=== PATIENT | female | born 1970 | race Caucasian/White ===

== ENCOUNTER → 2017-01-22 | Outpatient (CLI) | payer OTHER | LOC: FIMAGING 15:44 | PROVIDERS: ATTEND Family Medicine | DX: Z12.31 Encounter for screening mammogram for malignant neoplasm of breast (principal) | CPT/HCPCS: G0202 ==

== ENCOUNTER → 2018-01-23 | Outpatient (CLI) | payer OTHER | LOC: FIMAGING 08:34 | PROVIDERS: ATTEND Family Medicine | DX: Z12.31 Encounter for screening mammogram for malignant neoplasm of breast (principal) ==

== ENCOUNTER 2018-03-27 05:53 | Observation (INO) | payer OTHER ==
--- NOTE | 2018-03-25 13:13 | GHP ---
DATE OF PLANNED PROCEDURE: 03/27/2018. PLANNED PROCEDURE: Total laparoscopic hysterectomy with bilateral salpingectomy for menorrhagia. INDICATIONS: Patient is a 47-year-old, 2, para 0-0-2-0, who I initially consulted in August of 2017 for irregular heavy periods. Patient states the last 2 years she has had cycles in which she has had a 24 hour period of bleeding causing flooding and significant cramps and clots. Her periods slightly tapers after that, but she can bleed for up to 14 days. It had been impacting her ability to work out and live her life. She also became anemic with a hemoglobin of 9.2. Pelvic ultrasound was obtained in December of 2016, which showed the uterus measuring 5.8 x 7.2 x 9.1 cm with 2 fibroids, 1 measuring 2.2 x 2.2 x 2.2 cm, intramural, and a transmural submucosal fibroid measuring 3 x 3.5 x 3.7 cm. Ovaries were unremarkable. The patient had been working extensively with an Eastern medicine doctor who advised against a hysterectomy or ablation as it would make things harder to treat. She had given her progesterone cream. Patient states that she feels okay for 10 days a month, and they are the only days where she is not bleeding or recovering from her period. The patient also has a history of migraines with ocular symptoms, and so was not a good candidate for hormones. The patient has been very resistant to interventions. We discussed all management options including hysteroscopy with morcellation of the fibroid, plus or minus ablation, minipill , and the Mirena IUD. The patient initially elected for minipill, which she did not tolerate. The patient continued to feel miserable and having irregular heavy periods and is still anemic. The patient is now electing to proceed with a total laparoscopic hysterectomy with bilateral salpingectomy. Risks and benefits have been extensively reviewed with the patient including all alternatives, and patient has been properly consented. MEDICAL HISTORY: Fibroid uterus, menorrhagia, genital herpes, migraines with ocular aura, history of anxiety and depression, and anemia secondary to menorrhagia. MEDICATIONS: Ibuprofen as needed and iron. SURGICAL HISTORY: Tonsillectomy. ALLERGIES: Penicillin which causes a rash. She has several dietary allergies. SOCIAL HISTORY: Patient is . She denies tobacco or drug use. She does drink alcohol 2 times a week. FAMILY MEDICAL HISTORY: Noncontributory. BUG TRIMMER HISTORY: Menarche age 13. Periods are 21 days, lasting 14 days, and they are very heavy with large clots and cramps. She is a 2, para 0-0-2 -0. She has had 2 voluntary terminations of pregnancies. She does have a history of genital herpes. She does not have any history of an abnormal Pap smear. Her most recent Pap smear was in 2017, which was negative. PHYSICAL EXAMINATION: VITAL SIGNS: The patient's vital signs are stable. GENERAL APPEARANCE: Alert and oriented x3. HEART: Rate is irregularly irregular. LUNGS: Clear to auscultation bilaterally. ABDOMEN: Soft, nondistended, nontender. EXTREMITIES: Reveal no calf tenderness or edema. PELVIC: Reveals a mobile midposition uterus with no adnexal masses. PSYCH: Appropriate affect. MUSCULOSKELETAL: Grossly intact. NEURO: Grossly intact. PELVIC ULTRASOUND: Most recent pelvic ultrasound showed a uterus measuring 8 x 5 x 6 cm with a 4 x 4 x 4 cm submucosal fibroid, a 2 x 1.6 x 1.6 cm posterior fundal fibroid, and a 1.5 x 1.2 x 1.3 cm posterior fibroid. Ovaries were unremarkable. LABORATORY DATA: Her most recent hemoglobin was 9.3, hematocrit was 30.5. REVIEW OF SYSTEMS: A 10-point review of systems is negative with the exception of the above-mentioned pertinent positives. ASSESSMENT AND PLAN: A 47-year-old 2, para 0-0-2-0, with persistent menorrhagia resulting in anemia. Options were reviewed extensively with the patient. Patient is electing to proceed with a total laparoscopic hysterectomy with bilateral salpingectomy. Risks and benefits have been extensively reviewed with the patient. Patient has been properly consented. /[id number]/MODL MTDD
[2018-03-27] MEDS ORDERED: LIDOCAINE 1% 2 ML INJ ID PRN (06:05)
[2018-03-27] MEDS ORDERED: LR 1,000 ML IV ONE (06:05)
[2018-03-27] MEDS ORDERED: ceFAZolin 2 GM/DEXTROSE 100 ML IV ONE (06:05)
[2018-03-27] MEDS ORDERED: MIDAZOLAM 2 MG/2 ML VIAL IVP ONE (07:02)
--- NOTE | 2018-03-27 07:03 | PDANEPAE ---
ANE History of Present Illness lap hysterectomy ANE Past Medical History - Cardiovascular History Hx Hypertension: No Hx Arrhythmias: No Hx Chest Pain: No Hx Coronary Artery / Peripheral Vascular Disease: No Hx CHF / Valvular Disease: No Hx Palpitations: No - Pulmonary History Hx COPD: No Hx Asthma/Reactive Airway Disease: No Hx Recent Upper Respiratory Infection: No Hx Oxygen in Use at Home: No Hx Sleep Apnea: No Sleep Apnea Screening Result - Last Documented: Negative Pulmonary History Comment: HX - BRONCHITIS - Neurologic History Hx Cerebrovascular Accident: No Hx Seizures: No Hx Dementia: No Neurologic History Comment: MIGRAINES - OCULAR CHRONIC - Endocrine History Hx Diabetes: No Obesity: no - Renal History Hx Renal Disorders: No - Liver History Hx Hepatic Disorders: No - Neurological & Psychiatric Hx Hx Neurological and Psychiatric Disorders: Yes - Cancer History Hx Cancer: No - Congenital Disorder History Hx Congenital Disorders: No - GI History Hx Gastrointestinal Disorders: Yes Gastrointestinal History Comment: CONSTIPATION - Other Health History Other Health History: ANEMIA - TAKES IRON - Chronic Pain History Chronic Pain: Yes (SEVERE CRAMPING W/CYCLES) - Surgical History Prior Surgeries: R ARM FX REPAIR. TONSILLECTOMY ANE Review of Systems Review of systems is: negative Review of Systems: - Exercise capacity METS (RN): 4 METS ANE Patient History - Allergies Allergies/Adverse Reactions: Milk Containing Products [dairy] Allergy (Verified 02/25/18 11:41) Penicillins Allergy (Verified 02/25/18 11:41) Hives - Home Medications Home medications: home medication list seen and reviewed Home Medications: Herbals/Supplements -Info Only 1 ea PO DAILY 02/25/18 [Last Taken 03/20/18] Ibuprofen [Motrin (*)] 200 mg PO DAILY PRN 02/25/18 [Last Taken 03/26/18] Iron 03/04/18 [Last Taken 03/26/18] Lorazepam 03/04/18 [Last Taken 03/26/18] - NPO status NPO Since - Liquids (Date): 03/27/18 NPO Since - Liquids (Time): 04:15 NPO Since - Solids (Date): 03/26/18 NPO Since - Solids (Time): 21:00 - Anes Hx Anes Hx: no prior problems - Smoking Hx Smoking Status: Former smoker - Family Anes Hx Family Hx Anesthesia Complications: NEG ANE Labs/Vital Signs - Vital Signs Height: 166.37 cm Weight: 62.142 kg ANE Physical Exam - Airway Neck exam: FROM Mallampati Score: Class 1 Mouth exam: normal dental/mouth exam - Pulmonary Pulmonary: no respiratory distress - Cardiovascular Cardiovascular: regular rate and rhythym - ASA Status ASA Status: II ANE Anesthesia Plan Anesthesia Plan: general endotracheal anesthesia
--- NOTE | 2018-03-27 07:05 | PDHPUP ---
History & Physical Update H&P update statement: This history and physical update is based on an assessment of the patient which was completed after admission or registration (within 24 hours), but prior to the surgery/procedure. H&P update: H&P reviewed & patient examined, no change in patient's condition since H&P completed
[2018-03-27] MEDS ORDERED: fentaNYL 100 MCG/2 ML INJ ONE ×3 (07:08→09:56)
[2018-03-27] MEDS ORDERED: PROPOFOL 200 MG/20 ML VIAL ONE (07:08)
[2018-03-27] MEDS ORDERED: morphINE PF 5 MG/10 ML INJ ONE (07:08)
[2018-03-27] MEDS ORDERED: LIDOCAINE 2% 5 ML SDV ONE (07:11)
[2018-03-27] MEDS ORDERED: BUPIVACAINE/DEXTROSE 7.5MG/ML 2 ML SPINAL AMP SP ONE (07:11)
[2018-03-27] MEDS ORDERED: ROCURONIUM 50 MG/5 ML VIAL ONE ×2 (07:15→08:00)
[2018-03-27] MEDS ORDERED: OPIUM/BELLADONNA ALKALO SUPP PR ONE (07:21)
[2018-03-27] MEDS ORDERED: BUPIVACAINE 0.5% 30 ML SDV ONE (07:21)
[2018-03-27] MEDS ORDERED: NALOXONE HCL 0.4 MG/ML INJ IVP PRN ×3 (08:11→17:47)
[2018-03-27] MEDS ORDERED: ONDANSETRON 4 MG/2 ML VIAL IVP PRN (08:11)
[2018-03-27] MEDS ORDERED: PROMETHAZINE HCL 25 MG/ML INJ IVP PRN (08:11)
[2018-03-27] MEDS ORDERED: LR 500 ML IV PRN (08:11)
[2018-03-27] MEDS ORDERED: METOCLOPRAMIDE 10 MG/2 ML VIAL IVP PRN (08:11)
[2018-03-27] MEDS ORDERED: ALBUTEROL 3 ML DEYVIAL IH PRN (08:11)
[2018-03-27] MEDS ORDERED: oxyCODONE IR 5 MG TAB PO PRN (08:11)
[2018-03-27] MEDS ORDERED: ACETAMINOPHEN 500 MG TAB PO PRN (08:11)
[2018-03-27] MEDS ORDERED: HYDROCODONE/APAP 5/325 TAB PO PRN (08:11)
--- NOTE | 2018-03-27 08:11 | POSTANESTH ---
Post Anesthetic Evaluation Cardiovascular Status: Normal, Stable Respiratory Status: Normal, Stable Level of Consciousness/Mental Status: Can Participate in Eval, Mildly Sleepy, Arousable Pain Control: Adequate, Prn Tx Ordered Nausea/Vomiting Control: Adequate, Prn Tx Ordered Complications Possibly Related to Anesthesia: None Noted
[2018-03-27] MEDS ORDERED: METHYLENE BLUE 0.5% 50 MG/10 ML AMP ONE (09:05)
[2018-03-27] MEDS ORDERED: OPIUM/BELLADONNA ALKALO SUPP PR PRN (09:56)
[2018-03-27] MEDS ORDERED: KETOROLAC 30 MG/1 ML SDV IVP ONE (09:56)
[2018-03-27] MEDS: fentaNYL 100 MCG/2 ML INJ IVP PRN ×2 (09:59→10:10)
[2018-03-27] MEDS ORDERED: BISACODYL 10 MG SUPP PR PRN (10:04)
[2018-03-27] MEDS ORDERED: MAGNESIUM HYDROXIDE 30 ML UDCUP PO PRN (10:04)
[2018-03-27] MEDS ORDERED: LACTULOSE 20 GM/30 ML UDCUP PO PRN (10:04)
[2018-03-27] MEDS ORDERED: POLYETHYLENE GLYCOL 3350 17 GM PKT PO PRN (10:04)
--- NOTE | 2018-03-27 10:10 | POSTOPPROG ---
Post Op Note Date of Operation: 03/27/18 Surgeon: Soniya Montgomery Pantry Steward/Stewardess: lavonne zapata Anesthesiologist: mahsa Anesthesia: GET(General Endotracheal) Pre-op Diagnosis: menorrhagia, dysfunctional uterine bleeding Post-op Diagnosis: same Procedure: total laparoscopic hysterectomy with bilateral salpingectomy and cystoscopy Inf/Abcess present in the surg proc area at time of surgery?: No Depth: Organ Space EBL: 100-500 Specimen(s): uterus cervix and bilateral tubes
[2018-03-27] MEDS ORDERED: HYDROmorphONE/DILAUDID 2 MG/ML INJ ONE (10:25)
[2018-03-27] MEDS: HYDROmorphONE/DILAUDID 2 MG/ML INJ IVP PRN ×4 (10:27→11:18)
[2018-03-27] MEDS: ONDANSETRON 4 MG/2 ML VIAL IVP PRN ×2 (12:08→16:14)
[2018-03-27] MEDS: oxyCODONE IR 5 MG TAB PO PRN ×2 (12:16→14:42)
--- NOTE | 2018-03-27 12:37 | GOP ---
DATE OF OPERATION: 03/27/2018 SURGEON: Soniya Montgomery DO CASTING MACHINE CONTROL BOARD OPERATOR: Dr. Whitehead. ANESTHESIOLOGIST: Gomez Black MD. PREOPERATIVE DIAGNOSIS: Menorrhagia, dysfunctional uterine bleeding, fibroids, and anemia. POSTOPERATIVE DIAGNOSIS: Menorrhagia, dysfunctional uterine bleeding, fibroids, and anemia. PROCEDURE PERFORMED: Total laparoscopic hysterectomy with bilateral salpingectomy and cystoscopy. FINDINGS: 1. Exam under anesthesia: Mobile bulky uterus with no adnexal masses. 2. Laparoscopic findings: Enlarged fibroid uterus. Normal ovaries and tubes. SPECIMENS: Uterus, cervix and bilateral fallopian tubes. ESTIMATED BLOOD LOSS: 300 cc. INDICATIONS: The patient is a 47-year-old 2, para 0-0-2-0, who has a longstanding history of irregular heavy periods. She has been anemic because of this. She has tried all conservative measu res and is requesting definitive therapy with a total laparoscopic hysterectomy with bilateral salpin gectomy. Risks and benefits have been extensively reviewed with the patient and the patient has been properly consented. DESCRIPTION OF PROCEDURE: The patient was taken to the operating room with intravenous fluids in kirti ce. She was given 2 g of Ancef intravenously. She was then placed on the operating room table in th e dorsal supine position where anesthesia was obtained. She was then repositioned into the dorsal li thotomy position with the Yellofin stirrups and prepped and draped in normal sterile fashion. Exam u nder anesthesia revealed a mobile uterus, which was bulky. No adnexal masses were noted. A Otto ca theter was then placed. A speculum was then placed in the patient's vagina, a single-tooth tenaculum was used to grasp the anterior lip of the cervix and the uterus sounded to 10 cm. The ERIC was asse mbled with the 8 cm tip and the medium size cup and was inserted without difficulty. Attention was t hen turned to the patient's abdomen, where a 5 mm skin incision was then made in the umbilicus and a 5 mm laparoscope was then advanced into the patient's abdomen under direct visualization. The area u nderneath the trocar insertion site was explored and found to be unremarkable. The abdomen was then insufflated with CO2 gas until an adequate pneumoperitoneum was achieved. The finding of a bulky fib roid uterus was noted, and no other abnormal findings were noted. Attention was then turned to the p atient's left lower quadrant, where a 10 mm skin incision was then made after injecting with local. A 10 mm trocar was then advanced into the patient's abdomen under direct visualization. A 5 mm troca r was then placed in the patient's right lower quadrant under direct visualization. A left salpingec celina was then performed and the left fallopian tube was then removed through the trocar. The LigaSur e was then used to clamp, cauterize, and transect the left round ligament. The left broad ligament w as then clamped, cauterized, and transected. The uterine arteries were skeletonized on the left side and a bladder flap was created, and the left uterine arteries were clamped, cauterized, and transect ed. Salpingectomy was then performed on the right side and the round ligament and the broad ligament s were clamped, cauterized, and transected. The uterine arteries were skeletonized and transected an d cauterized and transected, and the anterior flap was created anteriorly. The colpotomy ring was ea sily identified and then the Pneumo occluder was then inflated and a colpotomy was performed with the monopolar. The uterus was then withdrawn into the vagina and a sponge on a stick in a glove was the n inserted into the vagina to provide Pneumo occlusion. The vaginal cuff was cauterized where needed . Ureters were noted to be peristalsing bilaterally. The V-Loc suture was then used in a running fa shion to close the vaginal cuff. There were still several areas of bleeding, so a second V-Loc sutur e was used in a running fashion to achieve hemostasis, incorporating the posterior peritoneum. The p edicles were found to be hemostatic. The upper abdomen was explored and found to be unremarkable. A cystoscopy was then performed with an angled scope. The bubble at the dome of the bladder was visua lized and no suture was noted visualized within the bladder. Bilateral ureteral jets were noted with methylene blue. The bladder was then drained and the cystoscope was withdrawn. Attention was then turned to the patient's abdomen, where the vaginal cuff appeared to be hemostatic and the pedicles we re hemostatic. 0 Vicryl stitch was then used to close the fascia with the fascial closure device. C O2 gas was expressed from the patient's abdomen and the other trocars were removed from the patient's abdomen. Skin was then closed with 4-0 Monocryl. A speculum exam was then performed and the vagina l cuff appeared to be intact. Sponge, lap, and needle count correct x2. Patient was transported to the recovery room in stable condition. /[id number]/MODL
[2018-03-27] MEDS ORDERED: AMMONIA AROMATIC 1 EACH AMP IH ONE (12:50)
[2018-03-27] MEDS ORDERED: HYDROmorphONE/DILAUDID 1 MG/ML INJ IVP PRN (13:39)
[2018-03-27] MEDS: ACETAMINOPHEN 500 MG TAB PO SCH ×2 (14:43→22:33)
[2018-03-27] MEDS: KETOROLAC 30 MG/1 ML SDV IVP PRN ×2 (16:10→22:10)
[2018-03-27] MEDS ORDERED: morphINE PCA 30 MG/30 ML PCA IV PRN ×2 (17:45→18:21)
--- NOTE | 2018-03-27 17:45 | SOAPPROG ---
SOAP Progress Note Assessment/Plan: Assessment: pod# 0 s/p TLH BS pain management issues will try substation manager and lidocaine patch Plan: 03/27/18 17:43 Subjective: patient is doing ok except having severe pain in left lower quadrant. patient is tearful and has had multiple doses of tylenol, toradol, dilaudid and norco. was able to get up and go to the bathroom. voided without difficulty. denies vaginal bleeding. was able to eat crackers. Objective: Vital Signs Temp Pulse Resp BP Pulse Ox 36.6 C 76 18 106/76 100 03/27/18 14:35 03/27/18 14:35 03/27/18 14:35 03/27/18 14:35 03/27/18 14:35 03/26/18 03/27/18 03/28/18 05:59 05:59 05:59 Intake Total 2019 Output Total 2540 Balance -520 Physical Exam - Physical Exam General Appearance: WD/WN, alert Respiratory: chest non-tender, lungs clear, normal breath sounds Cardiac/Chest: normal peripheral pulses, regular rate, rhythm Abdomen: normal bowel sounds, soft, other (tenderness to deep palpation just medial to left lower trocar site) Skin: normal color, warm/dry Extremities: normal range of motion, non-tender, normal inspection, normal capillary refill Neuro/Psych: no motor/sensory deficits, alert, normal mood/affect ICD10 Worksheet Patient Problems: Problems Problem Status Onset Menorrhagia Acute
[2018-03-27] MEDS: LIDOCAINE 4%/MENTHOL 1% PATCH TD SCH (18:32)
[2018-03-27] MEDS ORDERED: PROMETHAZINE HCL 25 MG/ML INJ IV PRN (20:30)
[2018-03-27] MEDS ORDERED: PATCH REMOVAL 1 EA PATCH TD SCH (21:00)
[2018-03-27] MEDS: SENNOSIDES/DOCUSATE SODIUM TAB PO SCH (22:09)
[2018-03-28] MEDS: KETOROLAC 30 MG/1 ML SDV IVP PRN ×2 (04:28→10:57)
[2018-03-28] MEDS: ACETAMINOPHEN 500 MG TAB PO SCH (06:27)
[2018-03-28] MEDS: oxyCODONE IR 5 MG TAB PO PRN ×3 (07:54→12:48)
[2018-03-28] MEDS: SENNOSIDES/DOCUSATE SODIUM TAB PO SCH (07:55)
[2018-03-28 08:30] VITALS: BP 89/50
[2018-03-28] MEDS ORDERED: ENOXAPARIN 40 MG/0.4 ML SYR SC SCH (09:00)
[2018-03-28] MEDS ORDERED: IBUPROFEN 600 MG TAB PO SCH (10:03)
[2018-03-28] MEDS: LIDOCAINE 4%/MENTHOL 1% PATCH TD SCH (10:11)
--- NOTE | 2018-03-28 12:29 | SOAPPROG ---
SOAP Progress Note Assessment/Plan: Assessment: pod# 1 s/p TLH BS pain management issues resolved anemia discharge instructions 03/28/18 12:26 Subjective: patient is doing much better than last night. MANAGER HI was very helpful in finally getting pain controlled. passing gas. voiding without difficulty. no vaginal bleeding. ambulating. ready to go home. tolerating diet. Objective: Vital Signs Temp Pulse Resp BP Pulse Ox 36.8 C 98 16 89/50 L 99 03/28/18 08:07 03/28/18 08:07 03/28/18 08:07 03/28/18 08:07 03/28/18 08:07 Laboratory Results 03/28/18 06:15 03/27/18 03/28/18 03/29/18 05:59 05:59 05:59 Intake Total 3950 Output Total 4110 Balance -160 Physical Exam - Physical Exam General Appearance: WD/WN, alert, no apparent distress Neck: non-tender, full range of motion Respiratory: chest non-tender, lungs clear, normal breath sounds Cardiac/Chest: normal peripheral pulses, regular rate, rhythm Abdomen: normal bowel sounds, non-tender, soft, other (incicions covered) Skin: normal color, warm/dry Extremities: normal range of motion, non-tender, normal inspection, normal capillary refill Neuro/Psych: no motor/sensory deficits, alert, normal mood/affect, oriented x 3 ICD10 Worksheet Patient Problems: Problems Problem Status Onset Menorrhagia Acute
[2018-03-28] MEDS ORDERED: LIDOCAINE 4%/MENTHOL 1% PATCH TD SCH (20:00)
--- NOTE | 2018-03-29 01:09 | GDS ---
ADMISSION DIAGNOSIS: Menorrhagia with anemia. POSTOPERATIVE DIAGNOSIS: Status post total laparoscopic hysterectomy with bilateral salpingectomy an d cystoscopy. INDICATIONS: Patient is a 47-year-old, 2, para 0-0-2-0, who has a longstanding history of he alejandra periods, which are resulting in anemia. Management options have been reviewed with the patient, and the patient has elected to proceed with a total laparoscopic hysterectomy with bilateral salpinge ctomy. The patient underwent that surgery on March 27, 2017. Surgery was uncomplicated. The post operative course was initially complicated by significant pain in the left trocar site. Patient was given multiple doses of Dilaudid and p.o. oxycodone. She ultimately started on a morphine PROTECTIVE SIGNAL INSTALLER HELPER which did resolve the pain. She has continued Toradol throughout the night. This morning, the PROTECTIVE SIGNAL INSTALLER HELPER was dis continued. Patient is voiding without difficulty. She is having no vaginal bleeding. Her pain is s ignificantly improved. She is using Tylenol, ibuprofen, and Oxy IR for pain control. The patient is discharged to home with discharge instructions of following up in the office in 2 weeks for incision checks and in 6 weeks for postop visit check. She is instructed to have nothing in the vagina for t he next 9 weeks and to call if there is bleeding more than a pad an hour, or if she has any fevers, o r chills. Questions were answered. Patient is discharged to home. /[id number]/MODL
[2018-03-29] MEDS ORDERED: PATCH REMOVAL 1 EA PATCH TD SCH (08:00)
== END 2018-03-28 13:15 | disposition home or self-care (01) ==
LOC: F3N 05:53 → FOB 11:32
PROVIDERS: ADMIT Obstetrics & Gynecology; ATTEND Obstetrics & Gynecology
PROC: 0UT7FZZ Resection of Bilateral Fallopian Tubes, Via Natural or Artificial Opening With Percutaneous Endoscopic Assistance (ICD-10-PCS; principal; 2018-03-27 07:15)
PROC: 0UT9FZZ Resection of Uterus, Via Natural or Artificial Opening With Percutaneous Endoscopic Assistance (ICD-10-PCS; principal; 2018-03-27 07:15)
PROC: 0TJ98ZZ Inspection of Ureter, Via Natural or Artificial Opening Endoscopic (ICD-10-PCS; principal; 2018-03-27 07:15)
DX: D25.1 Intramural leiomyoma of uterus (principal); D25.0 Submucous leiomyoma of uterus; D25.2 Subserosal leiomyoma of uterus; N92.0 Excessive and frequent menstruation with regular cycle; D50.0 Iron deficiency anemia secondary to blood loss (chronic); Z23 Encounter for immunization; G43.909 Migraine, unspecified, not intractable, without status migrainosus
CPT/HCPCS: 58571; 90471; G0378; G0008; J0690; J1170; J1650; J1885; J2250; J2270; J2274; J2405; J2550; J2704; J3010; Q9968